=== PATIENT | female | born 1995 | race Caucasian/White ===

== ENCOUNTER 2024-12-09 23:47 | Emergency (ER) | payer BC ==
[2024-12-10] MEDS ORDERED: Ketorolac Tromethamine 30 MG (1 mL) VIAL ONE (00:21)
== END 2024-12-10 00:27 | disposition home or self-care (01) ==
LOC: CSHERS 23:47
DX: G89.18 Other acute postprocedural pain (principal); R10.9 Unspecified abdominal pain
CPT/HCPCS: J1885